=== PATIENT | female | born 1990 | race Caucasian/White ===

== ENCOUNTER 2016-12-20 18:47 | Emergency (ER) | payer BC ==
[2016-12-20] MEDS ORDERED: fentaNYL* 50 MCG/ML 2 ML VIAL (100 MCG VIAL) IV SLOW PU ONE ×2 (19:14→21:55)
[2016-12-20] MEDS ORDERED: Ondansetron INJ* 2 MG/ML VIAL IV ONE (19:14)
--- NOTE | 2016-12-20 19:43 | ED ---
Back Pain - HPI Summary HPI Summary: The patient is a 26 year old female presenting to ED with complaint of traumatic low back pain after sledding accident tonight. States sled hit a bump causing her to shoot upright landing on her buttocks. Reports severe pain non- radiating worse with positional changes or attempted ambulation. Admits to associated nausea. Denies head injury, LOC, neck or upper back pain, shortness of breath, abdominal pain, vomiting, fecal or urinary incontinence, gross hematuria, paresthesias, unilateral weakness. Denies significant past medical history. Prior left elbow surgery. Denies family history. SH: Lives in [place] with male spouse. Denies smoking, alcohol, or drug use. History of anaphylactic reaction to NSAIDs. - History of Current Complaint Chief Complaint: EDBackInjuryPain Stated Complaint: BACK PAIN Time Seen by Provider: 12/20/16 19:04 Pain Intensity: 9 - Allergies/Home Medications Allergies/Adverse Reactions: Allergies Allergy/AdvReac Type Severity Reaction Status Date / Time Gluten Meal Allergy Bleeding Verified 12/20/16 22:23 Lactose Allergy Hives Verified 12/20/16 22:24 dipirona Allergy Anaphylatic Uncoded 12/20/16 19:05 Shock metamizole Allergy Anaphylatic Uncoded 12/20/16 19:05 Shock Home Medications: Home Medications Fish Oil 1 tab PO DAILY 12/20/16 [History Confirmed 12/20/16] Multivitamin 1 tab PO DAILY 12/20/16 [History Confirmed 12/20/16] PMH/Surg Hx/FS Hx/Imm Hx Infectious Disease History: No Infectious Disease History: Denies: Traveled Outside the [place] in Last 30 Days Review of Systems Constitutional: Negative Eyes: Negative Negative: Photophobia, Blurred Vision, Diplopia ENT: Negative Negative: Epistaxis Cardiovascular: Negative Negative: Chest Pain Respiratory: Negative Negative: Shortness Of Breath Positive: Nausea. Negative: Abdominal Pain, Vomiting Genitourinary: Negative Negative: burning, dysuria, discharge, frequency, hematuria, incontinence, urgency Positive: Arthralgia, Myalgia, Decreased ROM. Negative: Edema Skin: Negative Negative: Rash, Bruising Neurological: Negative Negative: Headache, Weakness, Paresthesia, Numbness Psychological: Normal All Other Systems Reviewed And Are Negative: Yes Physical Exam Triage Information Reviewed: Yes Vital Signs On Initial Exam: Initial Vitals Temp Pulse Resp BP Pulse Ox 97.4 F 58 20 114/67 100 12/20/16 18:56 12/20/16 18:56 12/20/16 18:56 12/20/16 18:56 12/20/16 18:56 Vital Signs Reviewed: Yes Appearance: Positive: Well-Appearing, Well-Nourished, Pain Distress - moderate pain; guarded movement with grimacing and groaning with change in position Skin: Positive: Warm, Skin Color Reflects Adequate Perfusion, Dry Head/Face: Positive: Normal Head/Face Inspection. Negative: Cephalohematoma Eyes: Positive: Normal, EOMI, CANDELARIA, Conjunctiva Clear. Negative: Conjunctiva Inflammed ENT: Positive: Normal ENT inspection, Hearing grossly normal, Pharynx normal, TMs normal Neck: Positive: Supple, Nontender Respiratory/Lung Sounds: Positive: Clear to Auscultation, Breath Sounds Present. Negative: Decreased Breath Sounds, Rales, Rhonchi, Stridor, Tracheal Deviation, Wheezes, Unable to speak in full sentences Cardiovascular: Positive: Normal, RRR, Pulses are Symmetrical in both Upper and Lower Extremities, S1, S2. Negative: Murmur, Rub, Leg Edema Left, Leg Edema Right, S3 Abdomen Description: Positive: Nontender, No Organomegaly, Soft. Negative: CVA Tenderness (R), CVA Tenderness (L), Distended, Guarding, Hepatomegaly, Peritoneal Signs, Splenomegaly Bowel Sounds: Positive: Present Musculoskeletal: Positive: Strength/ROM Intact, Limited @ - decreased spinal ROM requiring assistance to move from supine to seated position, Pain @ - reported pain superior lumbar without reproducible midline or paraspinous tenderness; no ecchymosis Neurological: Positive: Normal, Sensory/Motor Intact, Alert, Oriented to Person Place, Time, CN Intact II-III, Reflexes Intact, NV Bundle Intact Distally Psychiatric: Positive: Normal AVPU Assessment: Alert Diagnostics - Vital Signs Vital Signs Temp Pulse Resp BP Pulse Ox 12/20/16 19:30 63 106/59 99 12/20/16 19:28 56 99 12/20/16 19:26 104/55 12/20/16 19:25 20 12/20/16 18:56 97.4 F 58 20 114/67 100 - Laboratory Lab Statement: Any lab studies that have been ordered have been reviewed, and results considered in the medical decision making process. Back Pain Course/Dx - Course Assessment/Plan: Patient presented for acute back pain after trauma. Xray with T12 compression fracture. CT with burst fracture of T12 with 50% loss of height and mild retropulsion of fracture fragments into anterior spinal canal measuring 2mm without spinal canal narrowing. No evidence of acute cord compression on physical exam. Reviewed CT findings with Dr. Hunter. Spoke with [facility] and will be fitted for TLSO brace in ED this morning prior to transport home. Given referral to neurosurgeon. Discussed concerning signs or symptoms to return immediately to ED> - Diagnoses Provider Diagnoses: Vertebral compression fracture Discharge - Discharge Plan Condition: Stable Disposition: HOME Prescriptions: HYDROcodone/ACETAMIN 5-325 MG* [[place] 5-325 TAB*] 1 tab PO Q4H PRN #40 tab MDD 5 PRN Reason: Pain - Moderate To Severe LORazepam TAB(*) [Ativan 1 MG TAB (*)] 1 mg PO Q8H PRN #15 tab MDD 3 PRN Reason: Spasms Patient Education Materials: Vertebral Compression Fracture (ED) Referrals: Delfin Rebolledo MD [Medical Doctor] - As Soon As Possible
[2016-12-20 20:08] LABS: Urine Bilirubin Negative (Negative); Urine Glucose Negative (Negative); Urine Nitrite Negative (Negative)
[2016-12-20] MEDS ORDERED: HYDROcodone/ACETAMIN 5-325 MG* 1 TAB PO ONE ×2 (20:43→22:48)
--- NOTE | 2016-12-20 20:43 | RAD ---
INDICATION: Trauma, low back pain. COMPARISON: There are no prior studies available for comparison. TECHNIQUE: 5 views of the lumbar spine were obtained including lateral, oblique, AP and a coned-down lateral view of the lumbar sacral junction. FINDINGS: There is a mild lumbar scoliosis convex toward the right side. The vertebra are otherwise in normal alignment. There is a moderate compression fracture of the T12 vertebral body with loss of height of approximately 60%. Disc spaces appear maintained. IMPRESSION: COMPRESSION FRACTURE OF THE T12 VERTEBRAL BODY RECOMMEND A CT OF THE LUMBAR SPINE TO INCLUDE THE T10-T12 VERTEBRA FOR FURTHER EVALUATION.
--- NOTE | 2016-12-20 21:21 | RAD ---
INDICATION: Trauma back pain. COMPARISON: Correlation is made with a prior x-ray study of the lumbar spine of the same date. TECHNIQUE: Contiguous axial sections were obtained beginning above the T11 vertebra and continuing through the L5-S1 disc space. Images were reconstructed in the sagittal and coronal planes. FINDINGS: There is a burst fracture involving the superior half of the T12 vertebral body. There is loss of height of approximately 50%. There is mild retropulsion of fracture fragments into the anterior spinal canal of approximately 2 mm. The posterior elements appear intact. No significant spinal canal narrowing is seen. No other fractures are noted. Incidental note is made of spina bifida occulta at the S1 level. There is no evidence for significant disc bulge or herniation. There is no evidence for spinal canal or neural foraminal narrowing. IMPRESSION: BURST FRACTURE OF THE T12 VERTEBRAL BODY DESCRIBED.
[2016-12-20] MEDS ORDERED: LORazepam INJ* 2 MG/ML 1 ML VIAL IV PUSH ONE (21:56)
[2016-12-20] MEDS ORDERED: LORazepam TAB(*) 1 MG PO ONE (22:48)
--- NOTE | 2016-12-21 08:18 | ED ---
Progress - Progress Note Progress Note: 8:18 Pt received from sign out - awaiting for Data Entry Assistant orthotics Spoke with Kateryna - [phone] -in office competing paperwork - will then come to ED with brace Course/Dx - Diagnoses Provider Diagnoses: T12 compression fracture, Vasovagal syncope
[2016-12-21] MEDS ORDERED: Ondansetron ODT TAB* 4 MG PO ONE (10:02)
[2016-12-21 10:29] VITALS: BP 98/63
--- NOTE | 2016-12-23 08:30 | ED ---
christopher Carmichael Timothy, scribed for Collins Hunter MD on 12/21/16 at 0448 . Progress - Progress Note Progress Note: Tiffanie Daigle is a 26 yo female presenting to [facility] with lower back pain due to a sledding accident. She is a sign out from [employer]. Pt was re- evaluated at 0442. She states that she lost consciousness at approximately 0415 for a few seconds. when she left her bed to go to the bathroom. She did not hit the floor, as she was gently lowered to the ground by her significant other, present in room. She has been nauseous since yesterday afternoon and so has not eaten anything. 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 She states she has a Hx of syncope with low blood sugar. PE The patient is well-nourished in no acute distress and in no acute pain. The skin is warm and dry and skin color reflects adequate perfusion. Respiratory: Chest is non-tender. Lungs are clear to auscultation and breath sounds are symmetrical and equal. Cardiovascular: Hear is regular rate and rhythm. There is no murmur or rub auscultated. There is no peripheral edema and pulses are symmetrical and equal. Musculoskeletal: Extremities are non-tender with full range of motion. There is good capillary refill. There is no peripheral edema or calf tenderness elicited. Per previours record, Pt has a T12 vertabral fracture Neurological: Patient is alert and oriented to person, place and time. The patient has symmetrical motor strength in all four extremities. Cranial nerves are grossly intact. Deep tendon reflexes are symmetrical and equal in all four extremities. Psychiatric: The patient has an appropriate affect and does not exhibit any anxiety or depression. Course/Dx - Course Course Of Treatment: Tiffanie Daigle is a 26 yo female presenting to [facility] with a vertabral compression fracture S/P a sledding accident. Pt is fitted with a back brace for her T12 compression fracture this morning. After clinical examination, she will be discharged home with T12 compression fracture and vasovagal syncope. - Diagnoses Provider Diagnoses: T12 compression fracture, Vasovagal syncope, VERTEBRAL COMPRESSION FRACTURE The documentation as recorded by the cassiaibchristopher masters Timothy accurately reflects the service I personally performed and the decisions made by Dale murray Drew, MD.
== END 2016-12-21 | disposition home or self-care (01) ==
LOC: ED 18:47
DX: S22.081A Stable burst fracture of T11-T12 vertebra, initial encounter for closed fracture (principal); R55 Syncope and collapse; X58.XXXA Exposure to other specified factors, initial encounter; Y93.23 Activity, snow (alpine) (downhill) skiing, snowboarding, sledding, tobogganing and snow tubing; Y92.9 Unspecified place or not applicable; Y99.9 Unspecified external cause status
CPT/HCPCS: 72110; 72131; 81003; 96374; 96375; 99282; A9270-GY; J2060; J2405; J3010